=== PATIENT | male | born 1930 | race Caucasian/White ===

== ENCOUNTER 2016-09-11 12:16 | Emergency (ER) | payer OTHER, MEDICARE ==
[~2016-09-11] VITALS: Ht 182.9 cm; Wt 104.8 kg
[~2016-09-11 12:16] MED LIST: ALBUTEROL0.09 MG/A1 INH; ASPIRIN81 M4 PO; BUFFERIN LOW DO81 MG PO; COUMADIN 2 MG TA2 MG PO; FUROSEMIDE20 MG PO; FUROSEMIDE40 M1 PO; FUROSEMIDE40 MG PO; JANTOVEN1 MG PO; LASIX40 MG PO; LOPRESSOR 25MG25 MG PO; MOXIFLOXACIN H400 M1 PO; PREDNISONE10 M2 PO; PREDNISONE20 M1 PO; SOTALOL80 MG PO; SYMBICORT 16010.2 GM INH; WARFARIN SODIUM2 M1 PO; ZITHROMAX250 M2 PO; ZOCOR 10MG TAB10 MG PO
--- NOTE | 2016-09-11 12:44 | ED GI/GU/ABDOMINAL COMPLAINT ---
History of Present Illness General Chief Complaint: Male Genitourinary Problems Stated Complaint: UNABLE TO URINATE Source: patient, family Exam Limitations: no limitations Vital Signs & Intake/Output Vital Signs & Intake/Output ED Intake and Output 09/12 0000 09/11 1200 Intake Total 60 Output Total Balance 60 Intake, Oral 60 Patient 231 lb Weight Allergies Coded Allergies: morphine (GI DISTRESS 06/25/16) Reconcile Medications Albuterol Sulfate (Albuterol Sulfate Hfa) 0.09 MG/Actuation KASSANDRA 2 PUFF INH Q4- 6 PRN PRN SHORTNESS OF BREATH (Reported) 90 MCG PER PUFF Budesonide/Formoterol Fumarate (Symbicort 160-4.5 Mcg Inhaler) 160 MCG-4.5 MCG/ ACTUATION HFA.AER.AD 2 PUF INH BID COPD Ciprofloxacin HCl (Cipro) 500 MG TABLET 1 TAB PO BID INFECTION Furosemide 40 MG TAB 1 TAB PO DAILY HEART HEALTH SOTALOL HCL (Sotalol) 80 MG TAB 0.5 TAB PO BID HEART (Reported) Tamsulosin HCl (Flomax) 0.4 MG CAP.ER.24H 1 CAP PO DAILY KIDNEY STONE Warfarin Sodium 2 MG TABLET 1 TAB PO AD BLOOD THINNER (Reported) Triage Note: PT TO ED C/O "URINARY PROBLEMS". STATES HE FEELS THE URGE TO URINATE AND THEN IS UNABLE TO. ALSO C/O BURNING WHEN HE DOES URINATE. DENIES BLOOD IN URINE. Triage Nurses Notes Reviewed? yes Onset: Abrupt Duration: day(s): (FEW) Timing: multiple episodes today Quality/Severity: moderate HPI: This is an 86 year old male who presents to the ER with difficulty urinating for the past few days. He states that he urinates small amounts every hour. He also states that he is having difficulty controlling his urine and is leaking and only can urinate when sitting down. Past History Travel History Traveled to [place] past 21 day No Medical History Any Pertinent Medical History? 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 No Review of Systems Review of Systems Constitutional: Denies: chills, fever. EENTM: Reports: no symptoms. Respiratory: Denies: cough, short of breath. Cardiovascular: Denies: chest pain. GI: Denies: abdominal pain, nausea, vomiting. Genitourinary: Reports: dysuria, frequency, urgency. Musculoskeletal: Reports: no symptoms. Skin: Reports: no symptoms. Neurological/Psychological: Reports: no symptoms. Hematologic/Endocrine: Denies: bruising, bleeding, polyuria, polydipsia. Immunologic/Allergic: Denies: splenectomy. All Other Systems: Reviewed and Negative Physical Exam Physical Exam General Appearance: well developed/nourished, alert, awake Head: atraumatic, normal appearance Eyes: Bilateral: normal appearance, PERRL, normal inspection. Ears, Nose, Throat, Mouth: hearing grossly normal, moist mucous membrane Neck: normal inspection, full range of motion Respiratory: normal breath sounds, chest non-tender Cardiovascular: regular rate/rhythm Gastrointestinal: soft, non-tender Male Genitals: normal genitalia Extremities: normal range of motion Neurologic/Psych: awake, alert, oriented x 3 Skin: intact, normal color, warm/dry Core Measures ACS in differential dx? No Severe Sepsis Present: No Septic Shock Present: No Progress Differential Diagnosis: urinary retention, UTI/pyelo, BPH Plan of Care: Orders Procedure Date/time Status Add-on Test (ER Only) 09/11 1302 Active CULTURE,URINE 09/11 1225 Active URINALYSIS 09/11 1225 Complete Current Medications Sig/Marjan Start time Last Medication Dose Stop Time Status Admin Ciprofloxacin 500 MG ONCE ONE 09/11 1345 UNVr (Cipro) 09/11 1346 Laboratory Tests 09/11/16 1231: Urinalysis MANY H, Urine Color YEL, Urine Clarity HAZY H, Urine pH 5.5, Ur Specific [place] >= 1.030, Urine Protein >=300 H, Urine Ketones 15 H, Urine Nitrite NEG, Urine Bilirubin NEG@ICTO, Urine Urobilinogen 2.0 H, Ur Leukocyte Esterase NEG, Ur Microscopic SEDIMENT EXAMINED, Urine RBC 25-50 H, Hyaline Casts 5-10 H, Urine Hemoglobin LARGE H, Urine Glucose NEG Microbiology 09/11 1225 URINE ROUT: Urine Culture - RECD urinalysis, urine culture ordered. BLADDER SCAN SHOWS ONLY SCANT AMOUNT OF URINE. HE IS NOT RETAINING. (SAMANTHA POE,STEFFI) Initial ED EKG: none Departure Departure Time of Disposition: 2 Disposition: HOME OR SELF CARE Condition: Stable Clinical Impression Primary Impression: UTI (urinary tract infection) Referrals: JUAN POE,ALBA Herrera (PCP/Family) Additional Instructions: Take the ciprofloxacin and Flomax as directed. Please drink fluids and take your regular medications including Lasix. Follow-up with your doctor in the office. Return to the ER for any changing or worsening symptoms, high fever, chills, nausea or vomiting. Departure Forms: Customer Survey General Discharge Information Prescriptions: Current Visit Scripts Ciprofloxacin HCl (Cipro) 1 TAB PO BID #19 TAB Tamsulosin HCl (Flomax) 1 CAP PO DAILY #14 CAP
[2016-09-11] MEDS ORDERED: CIPRO500 M1 PO (13:44)
[2016-09-11] MEDS ORDERED: FLOMAX0.4 M1 PO (13:45)
[2016-09-11 14:07] VITALS: BP 140/63
== END 2016-09-11 14:10 ==
LOC: ERH 12:16
DX: N39.0 Urinary tract infection, site not specified (principal)
CPT/HCPCS: 81001; 87086

== ENCOUNTER 2017-11-28 11:52 | Inpatient (IN) | payer OTHER, MEDICARE ==
[~2017-11-28] VITALS: Ht 182.9 cm; Wt 92.7 kg
[~2017-11-28 11:52] MED LIST changes: -ALBUTEROL0.09 MG/A1 INH; +CEFUROXIME500 MG PO; +CIPRO500 M1 PO; +FLOMAX0.4 M1 PO; +PROAIR HFA8.5 GM INH; +SOTALOL80 M1 PO
--- NOTE | 2017-11-28 14:11 | ED AMS/SEIZURE/WEAK/DIZZY ---
History of Present Illness General Chief Complaint: General Adult Stated Complaint: SOB, WEAKNESSS Source: patient Exam Limitations: no limitations Vital Signs & Intake/Output Vital Signs & Intake/Output Vital Signs Date Time Temp Pulse Resp B/P B/P Pulse O2 O2 Flow FiO2 Mean Ox Delivery Rate 11/28 1703 97.4 64 20 187/88 91 Room Air 11/28 1458 93 11/28 1450 97.0 63 20 184/88 95 Room Air 11/28 1358 94 Room Air 11/28 1201 96.9 61 24 169/70 96 Room Air Room Air Allergies Coded Allergies: morphine (GI DISTRESS 11/28/17) Reconcile Medications Albuterol Sulfate (Proair Hfa) 90 MCG HFA.AER.AD 2 PUF INH Q4-6 PRN PRN copd (Reported) Budesonide/Formoterol Fumarate (Symbicort 160-4.5 Mcg Inhaler) 160 MCG-4.5 MCG/ ACTUATION HFA.AER.AD 2 PUF INH BID BREATHING PROBLEMS (Reported) Furosemide 40 MG TABLET 1 TAB PO DAILY water pill Sotalol HCl (Sotalol) 80 MG TABLET 0.5 TAB PO BID heart health (Reported) Warfarin Sodium 2 MG TABLET 1 TAB PO SI BLOOD THINNER (Reported) Please take 1mg(1/2 tab) on Monday and Monday and 2mg(1 tab) on other days. Please dose Coumadin as per INR. Triage Note: PT TO ED WITH FAMILY WITH C/O SOB, HAS HX OF CHF HAD DUONEB AT HOME THIS AM, BUT NOT MUCH BETTER AFTER THE TREATMENT. SPUTUM IS YELLOW PER FAMILY. Triage Nurses Notes Reviewed? yes HPI: Patient presents for evaluation of shortness of breath and generalized weakness that began about a day or 2 ago. Fortunately patient is somewhat of a poor historian often relying on his "significant other" to provide history. He states that he does feel better after he takes a nebulizer treatment at home. He denies fever or cold symptoms. He likewise denies chest or abdominal pain. He does refer chronic leg swelling with no significant acute change. When asked about orthopnea he answered no but his "significant other" states he does have trouble lying flat due to worsening of his breathing. Patient's shortness of breath and generalized weakness seem to have improved after a nebulizer at home and described as essentially resolved at this time. (Jules Aragon MD) Past History Travel History Traveled to [place] past 21 day No Medical History Any Pertinent Medical History? 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 No (Margo POE,Jules Mcguire) Review of Systems Review of Systems Constitutional: Reports: weakness. EENTM: Reports: no symptoms. Respiratory: Reports: see HPI. Cardiovascular: Reports: no symptoms. GI: Reports: no symptoms. Genitourinary: Reports: no symptoms. Musculoskeletal: Reports: no symptoms. Skin: Reports: no symptoms. Neurological/Psychological: Reports: no symptoms. Hematologic/Endocrine: Reports: no symptoms. Immunologic/Allergic: Reports: no symptoms. All Other Systems: Reviewed and Negative (Margo POE,Jules Mcguire) Physical Exam Physical Exam General Appearance: see below Comments: Gen.: Well-nourished, well-developed, no acute respiratory distress. Head: Normocephalic, atraumatic. Eyes: Normal inspection bilaterally Ears: Normal inspection bilaterally Nose: Normal inspection Throat/mouth : Moist mucosa Neck: Supple, full range of motion, no goiter Heart: Regular rate and rhythm, no murmurs rubs or gallops Lungs: Faint end expiratory wheezing posteriorly with otherwise good air entry Chest: Nontender Back: Normal range of motion Abdomen: Soft, nontender, nondistended, normal bowel sounds Extremities: Normal range of motion grossly, equal radial pulses, no cyanosis, bilateral 2+ lower extremity pitting edema with chronic skin changes (no apparent cellulitis). Neurologic: Cranial nerves grossly intact, speech is clear Skin: warm and dry Psychiatric: Calm, cooperative, no apparent delusions or hallucinations Core Measures ACS in differential dx? No CVA/TIA Diagnosis No Sepsis Present: No Sepsis Focused Exam Completed? No (Margo POE,Jules Mcguire) Progress Differential Diagnosis: DEHYDRATION, ELECTROLYTE ABNORMALITY, copd, chf Plan of Care: Orders Procedure Date/time Status Heart Healthy Diet 11/29 B Active ED Holding Orders 11/28 1802 Active Admit to inpatient 11/28 180 Active Vital Signs 11/28 1802 Active Code Status 11/28 180 Active URINALYSIS 11/28 1325 Complete TROPONIN LEVEL 11/28 1325 Complete COMPREHENSIVE METABOLIC PANEL 11/28 1325 Complete CBC WITHOUT DIFFERENTIAL 11/28 132 Complete EKG 11/28 1156 Active Laboratory Tests 11/28/17 1605: Urine Color YEL, Urine Clarity CLEAR, Urine pH 6.0, Ur Specific [place] 1.025, Urine Protein 100 H, Urine Ketones NEG, Urine Nitrite NEG, Urine Bilirubin NEG, Urine Urobilinogen 1.0, Ur Leukocyte Esterase NEG, Ur Microscopic SEDIMENT EXAMINED, Urine RBC 1-3, Urine WBC RARE, Ur Epithelial Cells RARE, Urine Bacteria RARE H, Urine Mucus RARE, Urine Hemoglobin NEG, Urine Glucose NEG 11/28/17 1410: Anion Gap 12, Estimated GFR > 60, BUN/Creatinine Ratio 20.0, Glucose 87, Calcium 8.9, Total Bilirubin 0.8, AST 24, ALT 28, Alkaline Phosphatase 118, Troponin I < 0.01, Total Protein 7.5, Albumin 4.0, Globulin 3.5, Albumin/Globulin Ratio 1.1, CBC w Diff NO MAN DIFF REQ, RBC 5.10, MCV 84.0, MCH 27.6, MCHC 32.9 L, RDW 16.2 H, MPV 6.9 L, Gran % 69.5, Lymphocytes % 17.9 L, Monocytes % 9.0, Eosinophils % 3.3, Basophils % 0.3, Absolute Granulocytes 5.5, Absolute Lymphocytes 1.4, Absolute Monocytes 0.7 H, Absolute Eosinophils 0.3, Absolute Basophils 0 Initial ED EKG: NSR, LVH, INCOMPLETE RIGHT BUNDLE, HEART RATE OF 68 Prior EKG: unchanged Comments: 11/28/2017 3:30:49 PM patient 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 (Margo POE,Jules Mcguire) Departure Departure Disposition: STILL A PATIENT Condition: Stable Referrals: Jake POE,Rajiv Herrera (PCP/Family) Departure Forms: Customer Survey General Discharge Information (Margo POE,Jules Mcguire) Departure Clinical Impression Primary Impression: COPD exacerbation Secondary Impressions: CHF (congestive heart failure), Pulmonary hypertension Admission Note Spoke With: Jake POE,Rajiv Herrera Documentation of Exam: Documentation of any treatments & extenuating circumstances including Concerns Regarding Discharge (functional status, medication knowledge or non-compliance, living conditions, etc.) that warrant an admission rather than observation: [The patient needs admission for IV steroids and IV Lasix, pulmonary consultation] (Jules Kimble DO)
[2017-11-28 14:33] LABS: ABSOLUTE BASOPHIL COUNT 0 /CUMM (0.0-0.2); ABSOLUTE EOSINOPHIL COUNT 0.3 /CUMM (0.0-0.7); ABSOLUTE GRANULOCYTE CT 5.5 /CUMM (1.4-6.5); ABSOLUTE LYMPH COUNT 1.4 /CUMM (1.2-3.4); ABSOLUTE MONOCYTE COUNT 0.7 /CUMM (0.10-0.60); BASOPHIL % 0.3 % (0.0-2.0); EOSINOPHIL % 3.3 % (0-5); GRANULOCYTE % 69.5 % (42.2-75.2); HEMATOCRIT 42.8 % (42-52); MEAN CORPUSCULAR HGB 27.6 PG (27.0-31.0); MEAN CORPUSCULAR HGB CONC 32.9 G/DL (33.0-37.0); MEAN PLATELET VOLUME 6.9 FL (7.4-10.4); PLATELET COUNT 339 /CUMM (130-400); RBC DISTRIBUTION WIDTH 16.2 % (11.5-14.5); WHITE BLOOD CELL COUNT 7.9 /CUMM (4.8-10.8)
[2017-11-28] MEDS ORDERED: SYMBICORT 16010.2 GM INH (14:59)
--- NOTE | 2017-11-28 15:19 | RADIOLOGY REPORT ---
EXAMINATION: XR PORTABLE CHEST CLINICAL INFORMATION: Dyspnea and weakness. History of COPD. COMPARISON: Multiple previous chest x-rays with the most recent chest x-ray dated 09/18/2017. CT chest of 03/24/2015. TECHNIQUE: Portable frontal view of the chest was obtained. FINDINGS: Diffuse chronic reticular lung markings related to underlying changes of emphysema are again noted. However there appears to be superimposed mild diffuse interstitial prominence when compared to previous chest x-rays suggesting mild interstitial edema. No focal airspace opacities. Mild blunting of the right lateral costophrenic sulcus with mild pleural widening in the right hemithorax are stable chronic findings. No significant pleural effusions. No pneumothorax. Cardiomediastinal silhouette is stable with mild cardiomegaly and mildly ectatic aorta. No acute osseous abnormality. IMPRESSION: Changes of COPD. Superimposed mild interstitial edema is suspected. No evidence of overt pulmonary edema or lobar consolidation.
--- NOTE | 2017-11-28 18:41 | History & Physical ---
Alexia POERemi 11/28/17 1841: General Information and HPI History of Present Illness: Mr. Witt is a 7-year-old male with past medical history of atrial fibrillation on warfarin,HFpEF, hypertension, lipidemia, myocardial infarction, COPD, osteoporosis, and age-related macular degeneration who presents with shortness of breath. Patient has noticed increased shortness of breath of the past couple days. He went to sleep last night and woke up this morning feeling better. He took a nebulizer and continued to feel well. However he wanted to come in for further evaluation. Shortness of breath is mostly exertional. His last COPD exacerbation was a year ago. He has also noticed increased leg swelling and some cough with sputum. He did have a upper respiratory infection recently with positive sick contact. He denies chest pain, abdominal pain, dysuria, nausea, vomiting, diarrhea, and headache, orthopnea, weight gain, or fever. He is a former smoker has 1-2 beers per night. He denies recreational drug use. Allergies/Medications Allergies: Coded Allergies: morphine (GI DISTRESS 11/28/17) Home Med list Albuterol Sulfate (Proair Hfa) 90 MCG HFA.AER.AD 2 PUF INH Q4-6 PRN PRN copd (Reported) Budesonide/Formoterol Fumarate (Symbicort 160-4.5 Mcg Inhaler) 160 MCG-4.5 MCG/ ACTUATION HFA.AER.AD 2 PUF INH BID BREATHING PROBLEMS (Reported) Furosemide 40 MG TABLET 1 TAB PO DAILY water pill Sotalol HCl (Sotalol) 80 MG TABLET 0.5 TAB PO BID heart health (Reported) Warfarin Sodium 2 MG TABLET 1 TAB PO SI BLOOD THINNER (Reported) Please take 1mg(1/2 tab) on Monday and Monday and 2mg(1 tab) on other days. Please dose Coumadin as per INR. 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 Ambulation: independent IADLs Independent: shopping, housework, finances, food prep, telephone, transportation , medication admin. Review of Systems Review of Systems Constitutional: Reports: no symptoms. EENTM: Reports: no symptoms. Cardiovascular: Reports: see HPI. Respiratory: Reports: see HPI. GI: Reports: no symptoms. Genitourinary: Reports: no symptoms. Musculoskeletal: Reports: no symptoms. Skin: Reports: no symptoms. Neurological/Psychological: Reports: no symptoms. Hematologic/Endocrine: Reports: no symptoms. Immunologic/Allergic: Reports: no symptoms. All Other Systems: Reviewed and Negative Exam & Diagnostic Data Last 24 Hrs of Vital Signs/I&O Vital Signs Date Time Temp Pulse Resp B/P B/P Pulse O2 O2 Flow FiO2 Mean Ox Delivery Rate 11/28 1703 97.4 64 20 187/88 91 Room Air 11/28 1458 93 11/28 1450 97.0 63 20 184/88 95 Room Air 11/28 1358 94 Room Air 11/28 1201 96.9 61 24 169/70 96 Room Air Room Air Intake & Output 11/28 1600 11/28 0800 11/28 0000 Intake Total Output Total Balance Patient 106.594 kg Weight Weight Reported by Patient Measurement Method Physical Exam General Appearance Alert, Oriented X3, Cooperative, No Acute Distress Cardiovascular irregular with JVD Lungs crackles at bases Abdomen Normal Bowel Sounds, Soft, No Tenderness Extremities venous stasis dermatitis with 2+ pitting edema Last 24 Hrs of Labs/Walter: Laboratory Tests 11/28/17 1605: Urine Color YEL, Urine Clarity CLEAR, Urine pH 6.0, Ur Specific [place] 1.025, Urine Protein 100 H, Urine Ketones NEG, Urine Nitrite NEG, Urine Bilirubin NEG, Urine Urobilinogen 1.0, Ur Leukocyte Esterase NEG, Ur Microscopic SEDIMENT EXAMINED, Urine RBC 1-3, Urine WBC RARE, Ur Epithelial Cells RARE, Urine Bacteria RARE H, Urine Mucus RARE, Urine Hemoglobin NEG, Urine Glucose NEG 11/28/17 1410: Anion Gap 12, Estimated GFR > 60, BUN/Creatinine Ratio 20.0, Glucose 87, Calcium 8.9, Total Bilirubin 0.8, AST 24, ALT 28, Alkaline Phosphatase 118, Troponin I < 0.01, Total Protein 7.5, Albumin 4.0, Globulin 3.5, Albumin/Globulin Ratio 1.1, CBC w Diff NO MAN DIFF REQ, RBC 5.10, MCV 84.0, MCH 27.6, MCHC 32.9 L, RDW 16.2 H, MPV 6.9 L, Gran % 69.5, Lymphocytes % 17.9 L, Monocytes % 9.0, Eosinophils % 3.3, Basophils % 0.3, Absolute Granulocytes 5.5, Absolute Lymphocytes 1.4, Absolute Monocytes 0.7 H, Absolute Eosinophils 0.3, Absolute Basophils 0 Assessment/Plan Assessment: Mr. Witt is a 7-year-old male with past medical history of atrial fibrillation on warfarin,HFpEF, hypertension, lipidemia, myocardial infarction, COPD, osteoporosis, and age-related macular degeneration who presents with shortness of breath. On presentation, vital signs were T 96.9, HR 61, RR 24, BP 169/70, saturating 96 % on room air. Laboratories were significant for normal CBC and BEP, 100 protein in urine, chest x-ray showing COPD changes with superimposed edema. He received prednisone, ipratropium, and albuterol in the emergency room. He'll be admitted to general medicine and treated for following problems: 1. Acute decompensated heart failure 2. COPD exacerbation #Acute decompensated heart failure/COPD exacerbation: Patient presents to shortness of breath in the setting of history of hx of heart failure and COPD. He does have recent sick contact and URI but has signs of fluid overload on exam and no wheezing. Recent illness may have precipitated decompensation. -Follow-up BNP -Troponins and EKG 2 -Furosemide IV 40 mg daily -Daily weights -I's and O's -Consider cardiology consult in AM #Chronic medical problems: DVT prophylaxis with warfarin Heart healthy diet Full code As Ranked By This Provider Problem List: 1. CHF (congestive heart failure) Core Measures/Misc (05/21) Acute Coronary Syndrome ACS Diagnosis: No Congestive Heart Failure Congestive Heart Failure Diagnosis Yes Last Known EF % 65 Cerebrovascular Accident CVA/TIA Diagnosis: No VTE (View Protocol) VTE Risk Factors Age>40 No Mechanical VTE Prophylaxis d/t N/A MechProphylax Ordered No VTE Pharm Prophylaxis d/t NA PharmProphylax ordered Sepsis (View protocol) Sepsis Present: No Don Gandhi MD 11/28/17 2008: Resident Review Statement Resident Statement: examined this patient, discussed with editing intern, agreed with editing intern, discussed with family Other Findings: The patient is an 87-year-old man with a past medical history of atrial fibrillation on warfarin, HFpEF, hypertension, lipidemia, myocardial infarction, COPD, osteoporosis, and age-related macular degeneration who presents with worsening shortness of breath of 2 days duration. He had been having shortness of breath mostly exertional for the past 2 days assoicated with orthopnea and cough productive of whitish sputum. He also has noticed leg swelling for the past week. He had an URTI ;ast week. He denies chest pain, palpitations or lightheadedness. Patient has been regular on his lasix home medications. Vital signs at presentation showed: T 96.9, HR 61, RR 24, BP 169/70 mmhg, O2 sats 96% on room air. Physical exam at presentation showed an elderly man, not in distress. Neck exam showed elevated JVD. Chest exam shows coarse crepitations in bilateral lung bases. Cardiovascular exam shows normal S1, S2 with Ejection systolic murmur loudest in aortic area. Abdomen is non-tender. Extremities show bilateral pitting pedal edema with excoriation in right ellis from old injury. Significant labs at presentation: Normal CBC, BEP. Urinalysis shows proteinuria of 100 mg/dl Chest X ray shows mild interstitial edema. Of note, previous echocardiogram from 09/23/2015 showed moderate aortic stenosis and preserved ejection fraction of 60%. RVSP was elevated at 44 mmHg. Assessment The patients symptoms are consistent with an exacerbation of CHF and COPD exacerbation. He will be admitted and diuresed with IV lasix. Nebulizer therapy will be administered and the patient will be reviewed by electric blasting cap assembler for COPD. Problem list 1. Acute exacerbation of heart failure with preserved EF 2. COPD exacerbation 3. Atrial fibrillation on warfarin 4. Hypertension 5. History of moderate aortic stenosis Plan * Admit to Gen Med * IV diuresis with 40 mg of lasix X 1 now * Reassess for additional diuresis in the AM (considering patient's history of moderate aortic stenosis) * Serial EKG and troponin tonight * Daily weights * Monitor fluid input and outputs closely * Monitor BEP and electrolytes * Consider cardiology evaluation in the AM * Patient received albuterol and ipratropium nebulizer in the ER * Will continue with PO prednisone 40 mg daily in the AM * Pulmonology evaluation in the AM * Send INR and dose coumadin according to INR * COntinue home medications * DVT prophylaxis with warfarin * Patient is full code Jake POE,[facility] 11/29/17 1024: Attending MD Review Statement Attending Statement Attending MD Statement: examined this patient, discuss w/resident/PA/ROENTGENOLOGIST, agreed w/resident/PA/ROENTGENOLOGIST, discussed with family, reviewed EMR data (avail), discussed with nursing, discussed with case mgmt, reviewed images, amended to note Attending Assessment/Plan: Seen and examined independently This is an elderly gentleman with history of significant COPD with interstitial lung disease with atrial fibrillation, sig aortic stenosis now has Acute corpulmonalae Acute rt more than left heart faiure with CHF with pEF Severe emphysema with Interstitial lung disease stable with mild wheezing PAtrial fibrillation in sinus (on sotolol) on warfarin, with mild systolic dysfunction Significant aortic stenosis REC Gentle diuresis Keep potassium more than 40 Rpt ECHo Cont sotolol hold warfarin and keep INR more around 2.[address] Day see the pt for echo and follow up Follow crit
[2017-11-28 20:59] VITALS: BP 180/82
[2017-11-29 06:58] VITALS: BP 132/70
--- NOTE | 2017-11-29 07:53 | PN- Housestaff ---
See Addendum Subjective Follow-up For: ADHF Subjective: No overnight events. Patients feels well this morning. No breathing issues or CP. He urinated a lot last night. No other complaints. Review of Systems Constitutional: Reports: no symptoms. EENTM: Reports: no symptoms. Cardiovascular: Reports: no symptoms. Respiratory: Reports: no symptoms. Gastrointestinal: Reports: no symptoms. Genitourinary: Reports: no symptoms. Musculoskeletal: Reports: no symptoms. Skin: Reports: no symptoms. Neurological/Psychological: Reports: no symptoms. Hematologic/Endocrine: Reports: no symptoms. Immunologic/Allergic: Reports: no symptoms. Objective Last 24 Hrs of Vital Signs/I&O Vital Signs Date Time Temp Pulse Resp B/P B/P Pulse O2 O2 Flow FiO2 Mean Ox Delivery Rate 11/29 0658 97.5 59 20 132/70 94 Nasal 2.0L Cannula 11/29 0000 Nasal 2.0L Cannula 11/28 2058 97.4 76 20 180/82 93 Nasal 2.0L Cannula 11/29 2039 Nasal 2.0L Cannula 11/28 1945 97.7 69 24 177/77 97 Nasal 2.0L Cannula 11/28 1703 97.4 64 20 187/88 91 Room Air 11/28 1458 93 11/28 1450 97.0 63 20 184/88 95 Room Air 11/28 1358 94 Room Air 11/28 1201 96.9 61 24 169/70 96 Room Air Room Air Intake & Output 11/29 0800 11/29 0000 11/28 1600 Intake Total 300 200 Output Total 300 800 Balance 0 -600 Intake, Oral 300 200 Output, Urine 300 800 Patient 94.914 kg 106.594 kg Weight Weight Bed scale Reported by Patient Measurement Method Physical Exam General Appearance: Alert, Oriented X3, Cooperative, No Acute Distress Cardiovascular: irregular Lungs: Clear to Auscultation Extremities: mild pitting edema Current Medications: Current Medications Sig/Marjan Start time Last Medication Dose Route Stop Time Status Admin Acetaminophen 650 MG Q6P PRN 11/28 1944 AC PO Albuterol Sulfate 3 ML ONCE ONE 11/28 1415 DC 11/28 INH 11/28 1416 1450 Budesonide/ 2 PUF BID 11/28 2200 AC 11/29 Formoterol Fumarate INH 0013 Furosemide 40 MG DAILY 11/29 1000 AC IV Furosemide 20 MG ONCE ONE 11/28 1944 DC 11/28 IV 11/28 1945 193 Furosemide 20 MG ONCE ONE 11/28 1944 DC 11/28 IV 11/28 Furosemide 0 .STK-MED ONE 11/28 194 DC IV Ipratropium [place] 2.5 ML ONCE ONE 11/28 1415 DC 11/28 INH 11/28 1416 1449 Prednisone 40 MG DAILY 11/29 1000 CAN PO Prednisone 0 .STK-MED ONE 11/28 1503 DC PO Prednisone 60 MG ONCE ONE 11/28 1415 DC 11/28 PO 11/28 1416 1500 Sotalol HCl 40 MG BID 11/28 2200 AC 11/29 PO 0013 Last 24 Hrs of Lab/Walter Results Last 24 Hrs of Labs/Mics: Laboratory Tests 11/29/17 0650: Sodium Pending, Potassium Pending, Chloride Pending, Carbon Dioxide Pending, Anion Gap Pending, BUN Pending, Creatinine Pending, BUN/Creatinine Ratio Pending , PT Pending, INR Pending, CBC w Diff Pending, WBC Pending, RBC Pending, Hgb Pending, Hct Pending, MCV Pending, MCH Pending, MCHC Pending, RDW Pending, Plt Count Pending, MPV Pending 11/28/17 195: Troponin I < 0.01, PT 52.0 *H, INR 4.70 *H 11/28/17 1605: Urine Color YEL, Urine Clarity CLEAR, Urine pH 6.0, Ur Specific [place] 1.025, Urine Protein 100 H, Urine Ketones NEG, Urine Nitrite NEG, Urine Bilirubin NEG, Urine Urobilinogen 1.0, Ur Leukocyte Esterase NEG, Ur Microscopic SEDIMENT EXAMINED, Urine RBC 1-3, Urine WBC RARE, Ur Epithelial Cells RARE, Urine Bacteria RARE H, Urine Mucus RARE, Urine Hemoglobin NEG, Urine Glucose NEG 11/28/17 1410: Anion Gap 12, Estimated GFR > 60, BUN/Creatinine Ratio 20.0, Glucose 87, Calcium 8.9, Total Bilirubin 0.8, AST 24, ALT 28, Alkaline Phosphatase 118, Troponin I < 0.01, [id number] Pept 3030 H, Total Protein 7.5, Albumin 4.0, Globulin 3.5, Albumin/Globulin Ratio 1.1, CBC w Diff NO MAN DIFF REQ, RBC 5.10, MCV 84.0, MCH 27.6, MCHC 32.9 L, RDW 16.2 H, MPV 6.9 L, Gran % 69.5, Lymphocytes % 17.9 L, Monocytes % 9.0, Eosinophils % 3.3, Basophils % 0.3, Absolute Granulocytes 5.5, Absolute Lymphocytes 1.4, Absolute Monocytes 0.7 H, Absolute Eosinophils 0.3, Absolute Basophils 0 Assessment/Plan Assessment: Mr. Witt is an 87-year-old male with past medical history of atrial fibrillation on warfarin,HFpEF, hypertension, lipidemia, myocardial infarction, COPD, osteoporosis, and age-related macular degeneration who presented with shortness of breath. Problem List: 1. Acute decompensated heart failure 2. Supratherapeutic INR #Acute decompensated heart failure: Patient presents to shortness of breath in the setting of history of hx of heart failure and COPD. He does have recent sick contact and URI but has signs of fluid overload on exam and no wheezing. Recent illness may have precipitated decompensation. This morning he feels much improved and he looks less fluid overloaded on exam. Troponin EKG 2 were negative. -Furosemide IV 40 mg daily, consider transitioning back to oral -Daily weights -I's and O's -Consider cardiology consult #Supratherapeutic INR: Patient has INR 4.7. No signs of active bleeding at this time. -Daily INR -Hold warfarin #Chronic medical problems: DVT prophylaxis with warfarin Heart healthy diet Full code Problem List: 1. Acute decompensated heart failure Pain Ratin Pain Location: no Pain Goal: Remain pain free Pain Plan: see a/p Tomorrow's Labs & Rationales: no
[2017-11-29 08:22] LABS: ABSOLUTE BASOPHIL COUNT 0 /CUMM (0.0-0.2); ABSOLUTE EOSINOPHIL COUNT 0 /CUMM (0.0-0.7); ABSOLUTE MONOCYTE COUNT 0.6 /CUMM (0.10-0.60); BASOPHIL % 0.3 % (0.0-2.0); EOSINOPHIL % 0.3 % (0-5); GRANULOCYTE % 75.3 % (42.2-75.2); MEAN CORPUSCULAR HGB 27.6 PG (27.0-31.0); MEAN CORPUSCULAR HGB CONC 32.8 G/DL (33.0-37.0); MEAN PLATELET VOLUME 7.1 FL (7.4-10.4); PLATELET COUNT 284 /CUMM (130-400); WHITE BLOOD CELL COUNT 6.6 /CUMM (4.8-10.8)
[2017-11-29 08:38] LABS: PT 57.6 SEC (9.4-12.5)
[2017-11-29 08:49] LABS: HEMATOCRIT 37.8 % (42-52)
--- NOTE | 2017-11-29 10:25 | Admission Certification ---
Admission Certification Certification Statement - As attending physician, I certify that at the time of - admission, based on clinical presentation, severity of - symptoms, need for further diagnostic testing and - therapeutic interventions, and risk of adverse outcomes - without in-hospital treatment, in my clinical assessment, - this patient requires an acute hospital stay for a minimum - of two nights or longer. I have also considered psychsocial - factors such as support system, advanced age, financial - issues, cognitive issues, and failed out-patient treatments, - past re-admission history, safety of patient, and lack of - compliance as applicable. Specific rationale supporting this admission is: CHF and rt heart failure
[2017-11-29 14:19] VITALS: BP 130/66
--- NOTE | 2017-11-29 15:19 | Cons- Cardiology ---
General Information and HPI Consulting Request Date of Consult: 11/29/17 Requested By: Jake POE,Rajiv Herrera Reason for Consult: CHF; Source of Information: patient, old records History of Present Illness: the patient is a 87-year-old male. 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 He has a history of atrial fibrillation on warfarin, prior heart failure with normal ejection fraction, hypertension, coronary disease/myocardial infarction, and prior aortic stenosis. The patient is now admitted to the hospital with increasing shortness of breath. His chest x-ray and examination were felt to be consistent with acute CHF. Possibility of superimposed COPD exacerbation also exist. The patient denies any systemic symptoms. No chest discomfort. Etc. Allergies/Medications Allergies: Coded Allergies: morphine (GI DISTRESS 11/28/17) Home Med List: Albuterol Sulfate (Proair Hfa) 90 MCG HFA.AER.AD 2 PUF INH Q4-6 PRN PRN copd (Reported) Budesonide/Formoterol Fumarate (Symbicort 160-4.5 Mcg Inhaler) 160 MCG-4.5 MCG/ ACTUATION HFA.AER.AD 2 PUF INH BID BREATHING PROBLEMS (Reported) Furosemide 40 MG TABLET 1 TAB PO DAILY water pill Sotalol HCl (Sotalol) 80 MG TABLET 0.5 TAB PO BID heart health (Reported) Warfarin Sodium 2 MG TABLET 1 TAB PO SI BLOOD THINNER (Reported) Please take 1mg(1/2 tab) on Monday and Monday and 2mg(1 tab) on other days. Please dose Coumadin as per INR. Current Medications: Current Medications Sig/Marjan Start time Last Medication Dose Route Stop Time Status Admin Acetaminophen 650 MG Q6P PRN 11/28 1944 AC PO Albuterol Sulfate 3 ML BID 11/29 2199 AC 11/29 INH 1120 Budesonide/ 2 PUF BID 11/28 2199 AC 11/29 Formoterol Fumarate INH 0905 Furosemide 40 MG 7:30 AM, & 4:30 PM 11/29 1630 AC IV Furosemide 40 MG DAILY 11/29 1000 DC 11/29 IV 0904 Furosemide 20 MG ONCE ONE 11/28 1944 DC 11/28 IV 11/28 Furosemide 20 MG ONCE ONE 11/28 1944 DC 11/28 IV 11/28 Furosemide 0 .STK-MED ONE 11/28 194 DC IV Ipratropium [place] 2.5 ML BID 11/29 2200 AC 11/29 INH 1119 Patient Medication 1 ED ONE ONE 11/29 1100 DC Teaching ED 11/29 1101 Potassium Chloride 40 MEQ ONCE ONE 11/29 1015 DC 11/29 PO 11/29 1016 1231 Prednisone 40 MG DAILY 11/29 1000 CAN PO Sotalol HCl 40 MG BID 11/28 2199 AC 11/29 PO 0904 Past History Travel History Traveled to [place] past 21 day No Medical History Blood Transfusion Hx: No Neurological: NONE EENT: hearing loss, macular degeneration Cardiovascular: AFIB, CHF, hypertension, hyperlipidemia, myocardial infarction Respiratory: bronchitis, COPD, pneumonia Gastrointestinal: NONE Hepatic: NONE Renal: NONE Musculoskeletal: osteoarthritis Psychiatric: NONE Endocrine: NONE Blood Disorders: NONE Cancer(s): NONE 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 Home Services at Home: None Smoking Status: Former Smoker ETOH Use: occasional use Illicit Drug Use: denies illicit drug use Functional Ability ADLs Independent: dressing, eating, toileting, bathing. Ambulation: independent IADLs Independent: shopping, housework, finances, food prep, telephone, transportation , medication admin. ECHO Results (as available) Report: CONCLUSIONS 1. Normal EF of 70%. 2. Moderate left atrial enlargement. 3. Mild to moderate mitral regurgitation with moderate posterior annular calcification. 4. Mild tricuspid regurgitation. 5. Mild aortic regurgitation. Moderate aortic stenosis. Exam & Diagnostic Data Vital Signs and I&O Vital Signs Date Time Temp Pulse Resp B/P B/P Pulse O2 O2 Flow FiO2 Mean Ox Delivery Rate 11/29 1419 98.0 62 18 130/66 95 11/29 1110 Nasal 2.0L Cannula 11/29 1110 99 Nasal 2.0L Cannula 11/29 0800 Nasal 2.0L Cannula 11/29 0658 97.5 59 20 132/70 94 Nasal 2.0L Cannula 11/29 0000 Nasal 2.0L Cannula 11/28 2058 97.4 76 20 180/82 93 Nasal 2.0L Cannula 11/29 2039 Nasal 2.0L Cannula 11/28 1945 97.7 69 24 177/77 97 Nasal 2.0L Cannula 03/27 1703 97.4 64 20 187/88 91 Room Air Intake & Output 11/29 1600 11/29 0800 11/29 0000 11/28 1600 11/28 0800 11/28 0000 Intake Total 800 300 200 Output Total 300 300 800 Balance 500 0 -600 Intake, Oral 800 300 200 Output, Urine 300 300 800 Patient 209 lb 209 lb 235 lb Weight Weight Bed scale Reported by Patient Measurement Method Physical Exam: General Appearance Alert, Oriented X3, Cooperative, No Acute Distress Cardiovascular irregular S1, S2, 2/6 SYSTOLIC ejection murmur; JVP elevated 2 cm 45, bilateral transmitted carotid murmurs. Lungs bibasilar crackles Abdomen Normal Bowel Sounds, Soft, No Tenderness Extremities 1-2+ bilateral edema, slightly greater on the left side, stasis changes present Labs/Walter Results: Laboratory Tests 11/29 11/28 0650 1955 Chemistry Sodium (137 - 145 mmol/L) 140 Potassium (3.5 - 5.1 mmol/L) 4.1 Chloride (98 - 107 mmol/L) 102 Carbon Dioxide (22 - 30 mmol/L) 27 Anion Gap (5 - 16) 12 BUN (9 - 20 mg/dL) 15 Creatinine (0.7 - 1.2 mg/dL) 0.8 Estimated GFR (>60 ml/min) > 60 BUN/Creatinine Ratio (7 - 25 %) 18.8 Troponin I (<0.11 ng/ml) < 0.01 Coagulation PT (9.4 - 12.5 SEC) 57.6 *H 52.0 *H INR (0.90 - 1.17) 5.20 *H 4.70 *H Hematology CBC w Diff NO MAN DIFF REQ WBC (4.8 - 10.8 /CUMM) 6.6 RBC (4.70 - 6.10 /CUMM) 4.50 L Hgb (14.0 - 18.0 G/DL) 12.4 L Hct (42 - 52 %) 37.8 L MCV (80.0 - 94.0 FL) 84.0 MCH (27.0 - 31.0 PG) 27.6 MCHC (33.0 - 37.0 G/DL) 32.8 L RDW (11.5 - 14.5 %) 16.0 H Plt Count (130 - 400 /CUMM) 284 MPV (7.4 - 10.4 FL) 7.1 L Gran % (42.2 - 75.2 %) 75.3 H Lymphocytes % (20.5 - 51.1 %) 15.0 L Monocytes % (1.7 - 9.3 %) 9.1 Eosinophils % (0 - 5 %) 0.3 Basophils % (0.0 - 2.0 %) 0.3 Absolute Granulocytes (1.4 - 6.5 /CUMM) 5.0 Absolute Lymphocytes (1.2 - 3.4 /CUMM) 1.0 L Absolute Monocytes (0.10 - 0.60 /CUMM) 0.6 Absolute Eosinophils (0.0 - 0.7 /CUMM) 0 Absolute Basophils (0.0 - 0.2 /CUMM) 0 11/28 11/28 1605 1410 Chemistry Sodium (137 - 145 mmol/L) 140 Potassium (3.5 - 5.1 mmol/L) 4.2 Chloride (98 - 107 mmol/L) 101 Carbon Dioxide (22 - 30 mmol/L) 27 Anion Gap (5 - 16) 12 BUN (9 - 20 mg/dL) 16 Creatinine (0.7 - 1.2 mg/dL) 0.8 Estimated GFR (>60 ml/min) > 60 BUN/Creatinine Ratio (7 - 25 %) 20.0 Glucose (65 - 99 mg/dL) 87 Calcium (8.4 - 10.2 mg/dL) 8.9 Total Bilirubin (0.2 - 1.3 mg/dL) 0.8 AST (17 - 59 U/L) 24 ALT (21 - 72 U/L) 28 Alkaline Phosphatase (< 127 U/L) 118 Troponin I (<0.11 ng/ml) < 0.01 [id number] Pept (<125 pg/mL) 3030 H Total Protein (6.3 - 8.2 g/dL) 7.5 Albumin (3.5 - 5.0 g/dL) 4.0 Globulin (1.9 - 4.2 gm/dL) 3.5 Albumin/Globulin Ratio (1.1 - 2.2 %) 1.1 Hematology CBC w Diff NO MAN DIFF REQ WBC (4.8 - 10.8 /CUMM) 7.9 RBC (4.70 - 6.10 /CUMM) 5.10 Hgb (14.0 - 18.0 G/DL) 14.1 Hct (42 - 52 %) 42.8 MCV (80.0 - 94.0 FL) 84.0 MCH (27.0 - 31.0 PG) 27.6 MCHC (33.0 - 37.0 G/DL) 32.9 L RDW (11.5 - 14.5 %) 16.2 H Plt Count (130 - 400 /CUMM) 339 MPV (7.4 - 10.4 FL) 6.9 L Gran % (42.2 - 75.2 %) 69.5 Lymphocytes % (20.5 - 51.1 %) 17.9 L Monocytes % (1.7 - 9.3 %) 9.0 Eosinophils % (0 - 5 %) 3.3 Basophils % (0.0 - 2.0 %) 0.3 Absolute Granulocytes (1.4 - 6.5 /CUMM) 5.5 Absolute Lymphocytes (1.2 - 3.4 /CUMM) 1.4 Absolute Monocytes (0.10 - 0.60 /CUMM) 0.7 H Absolute Eosinophils (0.0 - 0.7 /CUMM) 0.3 Absolute Basophils (0.0 - 0.2 /CUMM) 0 Urines Urine Color (YEL,AMB,STR) YEL Urine Clarity (CLEAR) CLEAR Urine pH (5.0 - 8.0) 6.0 Ur Specific [place] (1.001 - 1.035) 1.025 Urine Protein (NEG,<30 MG/DL) 100 H Urine Ketones (NEG) NEG Urine Nitrite (NEG) NEG Urine Bilirubin (NEG) NEG Urine Urobilinogen (0.1 - 1.0 EU/dl) 1.0 Ur Leukocyte Esterase (NEG) NEG Ur Microscopic SEDIMENT EXAMINED Urine RBC (0 - 5 /HPF) 1-3 Urine WBC (0 - 2 /HPF) RARE Ur Epithelial Cells (NONE,FEW) RARE Urine Bacteria (NEG/NONE) RARE H Urine Mucus (FEW,NONE) RARE Urine Hemoglobin (NEG) NEG Urine Glucose (N MG/DL) NEG Assessment/Plan Assessment/Plan Assessment: 1. Worsening dyspnea with evidence of CHF 2. History of aortic stenosis; ? severity 3. LE edema with venous insufficiency and stasis changes. 4. Elevated proBNP 5. AF 6. HTN &. HLD Recommendations: - COntinue as presently. - close monitoring of I/Os and weights with diuresis - Avoid over diuresis in face of underlying aortic valve disease. - Echocardiogram pending -Further plans after echocardiogram reviewed Consult Acknowledgment - Thank you for your consult request.
[2017-11-29 23:25] VITALS: BP 122/60
[2017-11-30 06:57] VITALS: BP 168/84
--- NOTE | 2017-11-30 07:52 | PN- Housestaff ---
Subjective Follow-up For: ADHF Subjective: No overnight events. He was urinating a lot but no further SOB. No CP, abd pain, N/V/D. He feels much better today. Review of Systems Constitutional: Reports: no symptoms. EENTM: Reports: no symptoms. Cardiovascular: Reports: no symptoms. Respiratory: Reports: no symptoms. Gastrointestinal: Reports: no symptoms. Genitourinary: Reports: no symptoms. Musculoskeletal: Reports: no symptoms. Skin: Reports: no symptoms. Neurological/Psychological: Reports: no symptoms. Hematologic/Endocrine: Reports: no symptoms. Immunologic/Allergic: Reports: no symptoms. Objective Last 24 Hrs of Vital Signs/I&O Vital Signs Date Time Temp Pulse Resp B/P B/P Pulse O2 O2 Flow FiO2 Mean Ox Delivery Rate 11/30 0657 98.1 60 20 168/84 91 Room Air 11/29 2325 97.8 60 19 122/60 91 Nasal Cannula 11/29 2000 91 Room Air 11/29 1419 98.0 62 18 130/66 95 11/29 1110 Nasal 2.0L Cannula 11/29 1110 99 Nasal 2.0L Cannula 11/29 0800 Nasal 2.0L Cannula Intake & Output 11/30 0800 11/30 0000 11/29 1600 Intake Total 240 800 800 Output Total 450 600 300 Balance -210 200 500 Intake, Oral 240 800 800 Number 0 Bowel Movements Output, Urine 450 600 300 Patient 92.675 kg 94.914 kg Weight Weight Bed scale Measurement Method Physical Exam General Appearance: Alert, Oriented X3, Cooperative, No Acute Distress Cardiovascular: irregular Lungs: mild crackles Abdomen: Normal Bowel Sounds, Soft, No Tenderness Extremities: no edema, venous stasis dermatitis Current Medications: Current Medications Sig/Marjan Start time Last Medication Dose Route Stop Time Status Admin Acetaminophen 650 MG Q6P PRN 11/28 1945 AC PO Albuterol Sulfate 3 ML BID 11/29 2200 AC 11/29 INH 1999 Budesonide/ 2 PUF BID 11/28 2199 AC 11/29 Formoterol Fumarate INH 210 Furosemide 40 MG 7:30 AM, & 4:30 PM 11/29 1630 AC 11/30 IV 0631 Furosemide 40 MG DAILY 11/29 1000 DC 11/29 IV 0904 Ipratropium [place] 2.5 ML BID 11/29 2199 AC 11/29 INH 1999 Patient Medication 1 ED ONE ONE 11/29 1100 DC Teaching ED 11/29 1101 Potassium Chloride 40 MEQ ONCE ONE 11/29 1015 DC 11/29 PO 11/29 1016 1231 Sotalol HCl 40 MG BID 11/28 2200 AC 11/29 PO 2108 Last 24 Hrs of Lab/Walter Results Last 24 Hrs of Labs/Mics: Laboratory Tests 11/30/17 0719: Sodium Pending, Potassium Pending, Chloride Pending, Carbon Dioxide Pending, Anion Gap Pending, BUN Pending, Creatinine Pending, BUN/Creatinine Ratio Pending , PT Pending, INR Pending, CBC w Diff Pending, WBC Pending, RBC Pending, Hgb Pending, Hct Pending, MCV Pending, MCH Pending, MCHC Pending, RDW Pending, Plt Count Pending, MPV Pending Microbiology 11/29 1014 LOWER RESP: Respiratory Culture - COLB 11/29 1014 LOWER RESP: Gram Stain - COLB Assessment/Plan Assessment: Mr. Witt is an 87-year-old male with past medical history of atrial fibrillation on warfarin,HFpEF, hypertension, lipidemia, myocardial infarction, COPD, osteoporosis, and age-related macular degeneration who presented with shortness of breath. Problem List: 1. Acute decompensated heart failure 2. Supratherapeutic INR #Acute decompensated heart failure: Patient presented with shortness of breath in the setting of history of hx of heart failure and COPD. Recent illness may have precipitated decompensation. Troponin EKG 2 were negative. He is much improved status post diuresis and is now breathing well off of oxygen. He can likely be discharged today if the echocardiogram does not show any significant changes. -Furosemide IV 40 mg twice a day, transition to oral -Daily weights -I's and O's -Appreciate cardiology recommendations -TTE #Supratherapeutic INR: INR 5.2 yesterday. No signs of active bleeding at this time. Goal INR 23. -Daily INR -Hold warfarin #Chronic medical problems: DVT prophylaxis with warfarin Heart healthy diet Full code Problem List: 1. Acute decompensated heart failure Pain Ratin Pain Location: no Pain Goal: Remain pain free Pain Plan: see a/p Tomorrow's Labs & Rationales: no
[2017-11-30 08:24] LABS: PT 37.8 SEC (9.4-12.5)
[2017-11-30 08:27] LABS: ABSOLUTE BASOPHIL COUNT 0 /CUMM (0.0-0.2); ABSOLUTE EOSINOPHIL COUNT 0.3 /CUMM (0.0-0.7); ABSOLUTE LYMPH COUNT 1.5 /CUMM (1.2-3.4); ABSOLUTE MONOCYTE COUNT 0.7 /CUMM (0.10-0.60); BASOPHIL % 0.3 % (0.0-2.0); EOSINOPHIL % 3.6 % (0-5); GRANULOCYTE % 70.5 % (42.2-75.2); HEMATOCRIT 41.3 % (42-52); MEAN CORPUSCULAR HGB 27.6 PG (27.0-31.0); MEAN CORPUSCULAR HGB CONC 32.6 G/DL (33.0-37.0); MEAN CORPUSCULAR VOLUME 84.7 FL (80.0-94.0); PLATELET COUNT 329 /CUMM (130-400); RBC DISTRIBUTION WIDTH 16.1 % (11.5-14.5); RED BLOOD CELL CT 4.87 /CUMM (4.70-6.10); WHITE BLOOD CELL COUNT 8.6 /CUMM (4.8-10.8)
--- NOTE | 2017-11-30 08:58 | PN- Pulmonary ---
Subjective HPI/Critical Care Issues: Doing better Sig diuresis afebrile Blood work pending Off oxygen Feels strong enough to go home Objective Current Medications: Current Medications Sig/Marjan Start time Last Medication Dose Route Stop Time Status Admin Acetaminophen 650 MG Q6P PRN 11/28 1945 AC PO Albuterol Sulfate 3 ML BID 11/29 2200 AC 11/29 INH 1999 Budesonide/ 2 PUF BID 11/28 2199 AC 11/29 Formoterol Fumarate INH 2106 Furosemide 40 MG 7:30 AM, & 4:30 PM 11/29 1630 AC 11/30 IV 0631 Furosemide 40 MG DAILY 11/29 1000 DC 11/29 IV 0904 Ipratropium [place] 2.5 ML BID 11/29 220 AC 11/29 INH 1999 Patient Medication 1 ED ONE ONE 11/29 1100 DC Teaching ED 11/29 1101 Potassium Chloride 40 MEQ ONCE ONE 11/29 1015 DC 11/29 PO 11/29 1016 1231 Sotalol HCl 40 MG BID 11/28 2199 AC 11/29 PO 2107 Vital Signs & I&O Last 24 Hrs of Vitals and I&O: Vital Signs Date Time Temp Pulse Resp B/P B/P Pulse O2 O2 Flow FiO2 Mean Ox Delivery Rate 11/30 0657 98.1 60 20 168/84 91 Room Air 11/29 2325 97.8 60 19 122/60 91 Nasal Cannula 11/30 1999 91 Room Air 11/29 1419 98.0 62 18 130/66 95 11/29 1110 Nasal 2.0L Cannula 11/29 1110 99 Nasal 2.0L Cannula Intake & Output 11/30 1600 11/30 0800 11/30 0000 Intake Total 240 800 Output Total 450 600 Balance -210 200 Intake, Oral 240 800 Number 0 Bowel Movements Output, Urine 450 600 Patient 204 lb Weight Weight Bed scale Measurement Method Laboratory Tests 11/30 11/29 0719 0650 Chemistry Sodium (137 - 145 mmol/L) Pending 140 Potassium (3.5 - 5.1 mmol/L) Pending 4.1 Chloride (98 - 107 mmol/L) Pending 102 Carbon Dioxide (22 - 30 mmol/L) Pending 27 Anion Gap (5 - 16) Pending 12 BUN (9 - 20 mg/dL) Pending 15 Creatinine (0.7 - 1.2 mg/dL) Pending 0.8 Estimated GFR (>60 ml/min) > 60 BUN/Creatinine Ratio (7 - 25 %) Pending 18.8 Coagulation PT (9.4 - 12.5 SEC) 37.8 H 57.6 *H INR (0.90 - 1.17) 3.43 H 5.20 *H Hematology CBC w Diff NO MAN DIFF REQ NO MAN DIFF REQ WBC (4.8 - 10.8 /CUMM) 8.6 6.6 RBC (4.70 - 6.10 /CUMM) 4.87 4.50 L Hgb (14.0 - 18.0 G/DL) 13.5 L 12.4 L Hct (42 - 52 %) 41.3 L 37.8 L MCV (80.0 - 94.0 FL) 84.7 84.0 MCH (27.0 - 31.0 PG) 27.6 27.6 MCHC (33.0 - 37.0 G/DL) 32.6 L 32.8 L RDW (11.5 - 14.5 %) 16.1 H 16.0 H Plt Count (130 - 400 /CUMM) 329 284 MPV (7.4 - 10.4 FL) 7.0 L 7.1 L Gran % (42.2 - 75.2 %) 70.5 75.3 H Lymphocytes % (20.5 - 51.1 %) 17.4 L 15.0 L Monocytes % (1.7 - 9.3 %) 8.2 9.1 Eosinophils % (0 - 5 %) 3.6 0.3 Basophils % (0.0 - 2.0 %) 0.3 0.3 Absolute Granulocytes (1.4 - 6.5 /CUMM) 6.0 5.0 Absolute Lymphocytes (1.2 - 3.4 /CUMM) 1.5 1.0 L Absolute Monocytes (0.10 - 0.60 /CUMM) 0.7 H 0.6 Absolute Eosinophils (0.0 - 0.7 /CUMM) 0.3 0 Absolute Basophils (0.0 - 0.2 /CUMM) 0 0 11/28 1605 Chemistry Troponin I (<0.11 ng/ml) < 0.01 Coagulation PT (9.4 - 12.5 SEC) 52.0 *H INR (0.90 - 1.17) 4.70 *H Urines Urine Color (YEL,AMB,STR) YEL Urine Clarity (CLEAR) CLEAR Urine pH (5.0 - 8.0) 6.0 Ur Specific [place] (1.001 - 1.035) 1.025 Urine Protein (NEG,<30 MG/DL) 100 H Urine Ketones (NEG) NEG Urine Nitrite (NEG) NEG Urine Bilirubin (NEG) NEG Urine Urobilinogen (0.1 - 1.0 EU/dl) 1.0 Ur Leukocyte Esterase (NEG) NEG Ur Microscopic SEDIMENT EXAMINED Urine RBC (0 - 5 /HPF) 1-3 Urine WBC (0 - 2 /HPF) RARE Ur Epithelial Cells (NONE,FEW) RARE Urine Bacteria (NEG/NONE) RARE H Urine Mucus (FEW,NONE) RARE Urine Hemoglobin (NEG) NEG Urine Glucose (N MG/DL) NEG 11/28 1410 Chemistry Sodium (137 - 145 mmol/L) 140 Potassium (3.5 - 5.1 mmol/L) 4.2 Chloride (98 - 107 mmol/L) 101 Carbon Dioxide (22 - 30 mmol/L) 27 Anion Gap (5 - 16) 12 BUN (9 - 20 mg/dL) 16 Creatinine (0.7 - 1.2 mg/dL) 0.8 Estimated GFR (>60 ml/min) > 60 BUN/Creatinine Ratio (7 - 25 %) 20.0 Glucose (65 - 99 mg/dL) 87 Calcium (8.4 - 10.2 mg/dL) 8.9 Total Bilirubin (0.2 - 1.3 mg/dL) 0.8 AST (17 - 59 U/L) 24 ALT (21 - 72 U/L) 28 Alkaline Phosphatase (< 127 U/L) 118 Troponin I (<0.11 ng/ml) < 0.01 [id number] Pept (<125 pg/mL) 3030 H Total Protein (6.3 - 8.2 g/dL) 7.5 Albumin (3.5 - 5.0 g/dL) 4.0 Globulin (1.9 - 4.2 gm/dL) 3.5 Albumin/Globulin Ratio (1.1 - 2.2 %) 1.1 Hematology CBC w Diff NO MAN DIFF REQ WBC (4.8 - 10.8 /CUMM) 7.9 RBC (4.70 - 6.10 /CUMM) 5.10 Hgb (14.0 - 18.0 G/DL) 14.1 Hct (42 - 52 %) 42.8 MCV (80.0 - 94.0 FL) 84.0 MCH (27.0 - 31.0 PG) 27.6 MCHC (33.0 - 37.0 G/DL) 32.9 L RDW (11.5 - 14.5 %) 16.2 H Plt Count (130 - 400 /CUMM) 339 MPV (7.4 - 10.4 FL) 6.9 L Gran % (42.2 - 75.2 %) 69.5 Lymphocytes % (20.5 - 51.1 %) 17.9 L Monocytes % (1.7 - 9.3 %) 9.0 Eosinophils % (0 - 5 %) 3.3 Basophils % (0.0 - 2.0 %) 0.3 Absolute Granulocytes (1.4 - 6.5 /CUMM) 5.5 Absolute Lymphocytes (1.2 - 3.4 /CUMM) 1.4 Absolute Monocytes (0.10 - 0.60 /CUMM) 0.7 H Absolute Eosinophils (0.0 - 0.7 /CUMM) 0.3 Absolute Basophils (0.0 - 0.2 /CUMM) 0 Microbiology Date/Time Procedure - Status Source Growth 11/29 1014 Respiratory Culture - COLB LOWER RESP 11/29 1014 Gram Stain - COLB LOWER RESP Impression/Plan Impression/Plan Impression/Plan: General Appearance: Alert, Oriented X3, Cooperative, No Acute Distress Cardiovascular: irregular Lungs: Clear to Auscultation Extremities: mild pitting edema This is an elderly gentleman with history of significant COPD with interstitial lung disease with atrial fibrillation, sig aortic stenosis now has * Resolved Acute corpulmonalae * Acute rt more than left heart faiure with CHF with pEF * Severe emphysema with Interstitial lung disease stable with mild wheezing * PAtrial fibrillation in sinus (on sotolol) on warfarin, with mild systolic dysfunction * Significant aortic stenosis REC Gentle diuresis po lasix from today Keep potassium more than 40 Echo pending and depending on echo and cardio eval will dc him on lasix 40 po daily Pt was drinking sig fluids at home and he was counselled Cont sotolol hold warfarin and keep INR more around 2.5 Will need adjustment of dose upon dc Follow crit
[2017-11-30 14:30] VITALS: BP 130/75
--- NOTE | 2017-11-30 15:35 | Discharge Summary ---
Visit Information Visit Dates Admission Date: 11/28/17 Discharge Date: 11/30/17 Hospital Course Course Attending Physician: Rajiv Joseph MD Primary Care Physician: Rajiv Joseph MD Hospital Course: Mr. Witt is a 7-year-old male with past medical history of atrial fibrillation on warfarin,HFpEF, hypertension, lipidemia, myocardial infarction, COPD, osteoporosis, and age-related macular degeneration who presented with shortness of breath. On presentation, vital signs were T 96.9, HR 61, RR 24, BP 169/70, saturating 96 % on room air. Laboratories were significant for normal CBC and BEP, 100 protein in urine, chest x-ray showing COPD changes with superimposed edema. He received prednisone, ipratropium, and albuterol in the emergency room. He was admitted to general medicine and treated for the following problems: 1. Acute decompensated heart failure 2. Supratherapeutic INR #Acute decompensated heart failure: Patient presented with shortness of breath in the setting of history of hx of heart failure, elevated BNP, hypervolemia on exam, and chest x-ray showing edema. Recent illness may have precipitated decompensation. Troponin EKG 2 were negative. Cardiology consult was consulted and he was diuresed with IV furosemide. He is much improved status post diuresis and is now breathing well off of oxygen. He had a repeat TTE that showed no significant change from prior. He is being discharged on 40 mg furosemide by mouth daily and should follow up with Dr. Joseph next week. #Supratherapeutic INR: Patient presented with supratherapeutic INR. It was checked daily. His warfarin was held. He should continue to hold warfarin until Monday, December 02. On Monday, he can take a half dose. He can then resume his normal dosing on Monday and have his INR rechecked on Monday. He can follow up with Dr. Joseph next week. #Chronic medical problems: His other home medications were continued Allergies: Coded Allergies: morphine (GI DISTRESS 11/28/17) Disposition Summary Disposition Principal Diagnosis: 1. Acute decompensated heart failure Additional Diagnosis: 2. Supratherapeutic INR Discharge Disposition: home or self care Discharge Instructions General Discharge Information Code Status: Full Code Patient's Diet: Low-sodium diet Patient's Activity: As tolerated Follow-Up Instructions/Appts: Please take all medications as directed. Is follow-up with Dr. Joseph next week. Please have your INR checked on Monday. Medications at Discharge Discharge Medications: Continue taking these medications: Albuterol Sulfate (Proair Hfa) 90 MCG HFA.AER.AD 2 Puff Inhale through mouth EVERY 4-6 HOURS NEEDED as needed for copd Qty = 30 Comments: NOT GIVEN IN HOSPITAL Sotalol HCl (Sotalol) 80 MG TABLET 0.5 Tablet ORAL TWICE DAILY Qty = 30 Comments: Last Taken: 11/29/17 Time: 9 PM Warfarin Sodium (Warfarin Sodium) 2 MG TABLET 1 Tablet ORAL See Instructions Qty = 100 Instructions: Please take 1mg(1/2 tab) on Monday and Monday and 2mg(1 tab) on other days. Please dose Coumadin as per INR. Comments: Last Taken: 04/25/17 Time: 3:30 PM Furosemide (Furosemide) 40 MG TABLET 1 Tablet ORAL DAILY Qty = 30 Comments: Last Taken: 04/25/17 Time: 8:45 AM Budesonide/Formoterol Fumarate (Symbicort 160-4.5 Mcg Inhaler) 160 MCG-4.5 MCG/ ACTUATION HFA.AER.AD 2 Puff Inhale through mouth TWICE DAILY Comments: Last Taken:11/30/17 Time:9:30 Copies To: Jake POE,Rajiv Herrera; Thom Day MD
--- NOTE | 2017-11-30 15:41 | Patient Discharge Instructions ---
Discharge Instructions General Discharge Information You were seen/treated for: Acute congestive heart failure Watch for these problems: Fever, chest pain, shortness of breath Special Instructions: Please take all medications as directed. Please do not take warfarin today or tomorrow (11/30/17-11/21/17). On Monday12/02/17, take a half dose. Then resume regular dosing on Monday12/03/17. On 12/04/17, please have your INR checked with blood draw. Please follow up with Dr. Joseph next week. Diet Continue normal diet: Yes Recommended Diet: Heart Healthy, Low salt Activity Full Activity/No Limits: Yes Acute Coronary Syndrome Inclusion Criteria At DC or during hospital stay patient has or had the following: ACS DIAGNOSIS No Discharge Core Measures Meds if any: Prescribed or Continued at Discharge Meds if any: NOT Prescribed or Continued at Discharge Congestive Heart Failure Inclusion Criteria At DC or during hospital stay patient has or had the following: CHF DIAGNOSIS Yes Discharge Core Measures Meds if any: Prescribed or Continued at Discharge Meds if any: NOT Prescribed or Continued at Discharge Cerebrovascular accident Inclusion Criteria At DC or during hospital stay patient has or had the following: CVA/TIA Diagnosis No Discharge Core Measures Meds if any: Prescribed or Continued at Discharge Meds if any: NOT Prescribed or Continued at Discharge Venous thromboembolism Inclusion Criteria VTE Diagnosis No VTE Type NONE VTE Confirmed by (Test) NONE Discharge Core Measures - Per Current guidelines, there needs to be overlap - treatment for the first 5 days of Warfarin therapy. - If discharged on Warfarin prior to 5 days of - overlap therapy, the patient will need to be - assessed for post discharge needs including - *Post discharge parental anticoagulation - *Warfarin and/or parental anticoagulation education - *Follow up date to check INR post discharge At least 5 days overlap therapy as Inpatient No Meds if any: Prescribed or Continued at Discharge Note: Overlap Therapy is Warfarin and Anticoagulant Meds if any: NOT Prescribed or Continued at Discharge
--- NOTE | 2017-12-01 16:15 | ECHOCARDIOGRAM REPORT ---
JAC COURTNEY Age: 87 : 1930 Gender: M Exam Date: 11/30/2017 11:04 Exam Location: [address] [place] [address] A Ht (in): 72 Wt (lb): 209 BSA: 2.21 BP: 130 / 66 Ordering Physician: Remi Hale MD Referring Physician: Remi Hale MD Technologist: Ezio Velarde [facility] Room Number: 236-1 Indications: HEART FAILURE Rhythm: Sinus Technical Quality: Fair FINDINGS Left Ventricle Normal size left ventricle. No obvious regional wall motion abnormalities. Borderline normal left ventricular ejection fraction estimated at 50-55%. Right Ventricle Right ventricle not well visualized, grossly normal. Right Atrium Mild right atrial dilatation. Left Atrium Mild to moderate left atrial dilatation. Mitral Valve Mitral valve thickened. Mild mitral annular calcification. Mild mitral regurgitation. Aortic Valve Trileaflet aortic valve. Diffuse thickening of the aortic valve cusps with reduced excursion. [id number] aortic stenosis. Mild aortic regurgitation. Tricuspid Valve Tricuspid valve not well visualized, grossly normal. Mild tricuspid regurgitation. Right ventricular systolic pressure estimated to be elevated at 50 mmHg. Pulmonic Valve Pulmonic valve not well visualized, grossly normal. Pericardium No pericardial effusion. Great Vessels Aortic root and proximal ascending aorta not well visualized, grossly normal. CONCLUSIONS 1. Fibrocalcific degeneration is present in the aortic valve with evidence of moderate to severe valvular stenosis (JACQUELYN 0.9 cm2) and mild aortic insufficiency. 2. MItral leaflet thickening is present with nild anular calcification and mild mitral insufficiency with mild to modeate left atrial enlargement. 3. THere is no pericardial fluid present. 4. The left ventricular chamber size is normal with an ejection fraction of 50-55% and no focal resting wall motion abnormalities. 5. Mild tricuspid insufficiency is present with right atrial enlargenent and pulmonary hypertension with an estimated RV systolic pressure of 50 mmHg. 6. THis was a technically difficult examination. Jaleel Day M.D. (Electronically Signed) Final Date: 01 December 2017 16:14 MEASUREMENTS (Male / Female) Normal Values 2D ECHO LV Diastolic Diameter PLAX 5.0 cm 4.2 - 5.9 / 3.9 - 5.3 cm LV Systolic Diameter PLAX 3.6 cm 2.1 - 4.0 cm LV Fractional Shortening PLAX 28.0 % 25 - 46 % LV Ejection Fraction 2D Teich 54.0 % IVS Diastolic Thickness 1.0 cm LVPW Diastolic Thickness 0.9 cm LV Relative Wall Thickness 0.4 LVOT Diameter 2.2 cm Aortic Root Diameter 3.3 cm LA Systolic Diameter LX 4.0 cm 3.0 - 4.0 / 2.7 - 3.8 cm LA Volume 60.0 cm 18 - 58 / 22 - 52 cm Ascending Aorta Diameter 3.3 cm DOPPLER AV Peak Velocity 309.0 cm/s AV Peak Gradient 38.2 mmHg AV Mean Velocity 222.0 cm/s AV Mean Gradient 23.0 mmHg AV Velocity Time Integral 87.4 cm AI Deceleration [place] 236.0 cm/s AI Peak Velocity 457.0 cm/s AI Pressure Half Time 567.0 ms AI Peak Gradient 83.5 mmHg LVOT Peak Velocity 59.4 cm/s LVOT Peak Gradient 1.4 mmHg LVOT Mean Velocity 40.3 cm/s LVOT Mean Gradient 1.0 mmHg LVOT Velocity Time Integral 17.0 cm LVOT Stroke Volume 64.6 cm AV Area Cont Eq vti 0.7 cm AV Area Cont Eq pk 0.7 cm MV Peak Velocity 93.1 cm/s MV Peak Gradient 3.5 mmHg MV Mean Velocity 55.0 cm/s MV Mean Gradient 1.0 mmHg Mitral E Point Velocity 97.7 cm/s Mitral A Point Velocity 86.9 cm/s Mitral E to A Ratio 1.1 MV PHT Velocity 103.0 cm/s MV Deceleration [place] 221.0 cm/s MV Pressure Half Time 139.8 ms MV Area PHT 1.6 cm MV Deceleration Time 317.0 ms MR Peak Velocity 681.0 cm/s MR Peak Gradient 185.5 mmHg TR Peak Velocity 331.0 cm/s TR Peak Gradient 43.8 mmHg Right Atrial Pressure 5.0 mmHg Pulmonary Artery Systolic Pressu 48.8 mmHg Right Ventricular Systolic Press 48.8 mmHg PV Peak Velocity 101.0 cm/s PV Peak Gradient 4.1 mmHg PV Mean Velocity 63.9 cm/s PV Mean Gradient 2.0 mmHg PV Velocity Time Integral 23.8 cm LV E' Lateral Velocity 7.9 cm/s Mitral E to LV E' Lateral Ratio 12.4 LV E' Septal Velocity 5.0 cm/s Mitral E to LV E' Septal Ratio 19.7
== END 2017-11-30 16:07 | DRG 190 ==
LOC: ERH 11:52 → ERHI 18:03 → 2NA 18:03 → ENRESERV 19:42 → ENTRNSPT 20:14 → EDTRNSPTSTS 20:34 → EDTRNSPT 20:34 → 2NA 20:35 → CMPTRNSPT 20:53 → 2NA 11-30 16:07
PROVIDERS: Internal Medicine; Physician Assistant Medical
DX: J44.1 Chronic obstructive pulmonary disease with (acute) exacerbation (principal); I50.33 Acute on chronic diastolic (congestive) heart failure; J84.9 Interstitial pulmonary disease, unspecified; I27.20 Pulmonary hypertension, unspecified; I48.2 Chronic atrial fibrillation; I27.81 Cor pulmonale (chronic); I11.0 Hypertensive heart disease with heart failure; I45.10 Unspecified right bundle-branch block; Z79.01 Long term (current) use of anticoagulants; I35.0 Nonrheumatic aortic (valve) stenosis; I25.2 Old myocardial infarction; H35.30 Unspecified macular degeneration; Z88.5 Allergy status to narcotic agent; Z79.51 Long term (current) use of inhaled steroids; H91.90 Unspecified hearing loss, unspecified ear; E78.5 Hyperlipidemia, unspecified; Z96.659 Presence of unspecified artificial knee joint; R79.89 Other specified abnormal findings of blood chemistry
CPT/HCPCS: 2NAP; 36592; 71045; 81001; 82436; 87070; 93005; 93010; 93306; J1940; J3490